=== PATIENT | female | born 1960 | race American Indian/Alaskan Native ===

== ENCOUNTER 2022-02-04 11:05 | Emergency (ER) | payer SELFPAY ==
[2022-02-04 13:14] LABS: Bacteria,Urine 2+ /HPF (Negative); Bilirubin,Urine NEG (Negative); Blood,Urine SM (Negative); Color,Urine Yellow (Yellow); Hyaline Casts,Urine 1 /LPF; Mucus,Urine FEW /HPF
--- NOTE | 2022-02-05 12:19 | Electrocardiograph Report ---
[facility] Test Date: 2022-02-04 Test Time: 12:20:05 Pat Name: FRED NAZARIO Department: Room: Gender: F Insurance Job Titles: [place] : 1960 Requested By: ED DOC Order Number: [id number] Reading MD: Hussein Ortiz Measurements Intervals Flom Rate: 80 P: 39 MA: 172 QRS: 48 QRSD: 100 T: 188 QT: 374 QTc: 431 Interpretive Statements Sinus rhythm Atrial premature complex LVH with secondary repolarization abnormality No previous ECG available for comparison Electronically Signed On 02-05-2022 12:19:00 EDT by Hussein Ortiz
== END 2022-02-05 08:07 | disposition left against medical advice (07) ==
LOC: ED 11:05
DX: R06.02 Shortness of breath (principal); Z53.21 Procedure and treatment not carried out due to patient leaving prior to being seen by health care provider
CPT/HCPCS: 81001; 93005